=== PATIENT | male | born 1980 | race Caucasian/White ===

== ENCOUNTER 2019-02-28 15:11 | Inpatient (IN) | payer MEDICAID ==
--- NOTE | 2019-02-28 15:40 | ED ---
Psychiatric Complaint - HPI Summary HPI Summary: Patient is a 38-year-old male who presents emergency Department requesting a mental health evaluation. Patient notes a history of anxiety and depression. Patient states her last few weeks he had a lot of stress in his life and feels he is unsafe at home. Patient significant other is present and states she does not feel safe leaving patient at home. Symptoms are moderate in severity. Patient currently denies homicidal or suicidal ideations. Patient notes he has been admitted in the past in [place] numerous times in the past. He follows with an outpatient psychiatrist. No current modifying factors. - History Of Current Complaint Chief Complaint: EDSuicidal Time Seen by Provider: 02/28/19 15:26 Hx Obtained From: Patient - Allergies/Home Medications Allergies/Adverse Reactions: Allergies Allergy/AdvReac Type Severity Reaction Status Date / Time No Known Allergies Allergy Verified 02/28/19 15:22 Home Medications: Home Medications ALPRAZolam [Alprazolam] 1 mg PO BID PRN 02/28/19 [History Confirmed 02/28/19] Baclofen 10 mg PO BID PRN 02/28/19 [History Confirmed 02/28/19] Dextroamp-Amphetamin 30 mg Tab 30 mg PO DAILY 02/28/19 [History Confirmed ] busPIRone TAB* [Buspar TAB *] 15 mg PO BID 02/28/19 [History Confirmed 02/28/19] traZODone TAB* [Desyrel TAB*] 200 mg PO BEDTIME 02/28/19 [History Confirmed ] PMH/Surg Hx/FS Hx/Imm Hx Previously Healthy: Yes Infectious Disease History: No Infectious Disease History: Denies: Traveled Outside the [place] in Last 30 Days - Family History Known Family History: Positive: Non-Contributory - Social History Occupation: Employed Full-time Lives: With Family Alcohol Use: Daily Alcohol Amount: "almost every day", had ETOH this AM with coffee Substance Use Type: Reports: Marijuana, Prescribed Substance Use Comment - Amount & Last Used: daily marijuana use Smoking Status (MU): Current Every Day Smoker Review of Systems Cardiovascular: Negative Respiratory: Negative Gastrointestinal: Negative Skin: Negative Positive: Anxious, Depressed All Other Systems Reviewed And Are Negative: Yes Physical Exam Triage Information Reviewed: Yes Vital Signs On Initial Exam: Initial Vitals Temp Pulse Resp BP Pulse Ox 98.3 F 138 18 145/122 97 02/28/19 15:16 02/28/19 15:16 02/28/19 15:16 02/28/19 15:16 02/28/19 15:16 Vital Signs Reviewed: Yes Appearance: Positive: Well-Appearing - Pt. sitting on bed in NAD. SO present. Cooperative. Skin: Positive: Warm, Dry Head/Face: Positive: Normal Head/Face Inspection Eyes: Positive: Normal, EOMI Neck: Positive: Supple Musculoskeletal: Positive: Normal, Strength/ROM Intact Neurological: Positive: Normal, CN Intact II-III Psychiatric: Positive: Affect/Mood Appropriate Diagnostics - Vital Signs Vital Signs Temp Pulse Resp BP Pulse Ox 02/28/19 15:16 98.3 F 138 18 145/122 97 - Laboratory Result Diagrams: 02/28/19 16:07 02/28/19 16:07 Lab Statement: Any lab studies that have been ordered have been reviewed, and results considered in the medical decision making process. Course/Dx - Course Course Of Treatment: Pt. presenting with increaese stress and suicidal thought intermittently. Pt. states he feels he needs to be admitted to the [facility] and does not feel safe at home. Pt. medically cleared. Pending MHE. Pt. will be signed out to LANDEN Carpenter. - Differential Dx/Clinical Impression Differential Diagnosis/HQI/PQRI: Positive: Anxiety, Bipolar Disorder, Depression , Suicidal Ideation Provider Diagnosis: Depression, Stress reaction Discharge - Sign-Out/Discharge Documenting (check all that apply): Sign-Out Patient Signing out patient TO: Francisco Javier Fisher Patient Received Moderate/Deep Sedation with Procedure: No - Discharge Plan Condition: Stable Referrals: Non Staff,Doctor [Medical Doctor] - - Billing Disposition and Condition Condition: STABLE
[2019-02-28 16:14] LABS: ABS Lymphocytes 2.2 10^3/ul (1.0-4.8); ABS Monocytes 0.6 10^3/ul (0-0.8); ABS Neutrophils 4.3 10^3/ul (1.5-7.7); Eosinophil % 0.6 %; Hematocrit 51 % (42-52); Hemoglobin 17.9 g/dL (14.0-18.0); Lymphocyte % 31.1 %; Mean Corpuscular HGB Conc 35 g/dL (31-36); Mean Corpuscular Hemoglobin 32 pg (27-31); Mean Corpuscular Volume 90 fL (80-94); Mean Platelet Volume 7.3 fL (7.4-10.4); Nucleated Red Blood Cells % 0.1; Platelet Count 199 10^3/uL (150-450); Red Blood Count 5.68 10^6 /uL (4.18-5.48); Red Cell Distribution Width 14 % (10-15); White Blood Count 7.1 10^3/uL (3.5-10.8)
[2019-02-28 16:28] LABS: ALT 42 U/L (7-52); AST 29 U/L (13-39); Albumin 4.8 g/dL (3.2-5.2); Albumin/Globulin Ratio 1.7 (1-3); Alkaline Phosphatase 77 U/L (34-104); Anion Gap 9 mmol/L (2-11); BUN/Creatinine Ratio 17.4 (8-20); Blood Urea Nitrogen 21 mg/dL (6-24); CO2 Carbon Dioxide 24 mmol/L (22-32); Calcium 10.1 mg/dL (8.6-10.3); Chloride 104 mmol/L (101-111); EGFR African American 80.4 (>60); EGFR Non-African American 66.4 (>60); Globulin 2.9 g/dL (2-4); Glucose 108 mg/dL (70-100); Potassium 4.1 mmol/L (3.5-5.0); Sodium 137 mmol/L (135-145); Total Protein 7.7 g/dL (6.4-8.9)
[2019-02-28 16:41] LABS: Acetaminophen < 15 mcg/mL; Alcohol < 10 mg/dL (<10); Salicylate < 2.50 mg/dL (<30)
[2019-02-28 16:55] LABS: TSH (Thyroid Stimulating Horm) 1.18 mcIU/mL (0.34-5.60)
[2019-02-28 17:15] LABS: Urine Appearance Clear; Urine Bacteria 1+ (Absent); Urine Bilirubin Negative (Negative); Urine Blood Negative (Negative); Urine Color Amber; Urine Glucose Negative (Negative); Urine Ketones Negative (Negative); Urine Nitrite Negative (Negative); Urine Protein 1+(30 mg/dL) (Negative); Urine Red Blood Cell Trace(0-2/hpf) (Absent); Urine Specific Gravity 1.028 (1.010-1.030); Urine Squamous Epithelial Cell Present (Absent); Urine Urobilinogen Negative (Negative); Urine White Blood Cell Trace(0-5/hpf) (Absent)
[2019-02-28 17:16] LABS: Urine Benzodiazepine Screen Presumptive Positive (None Detect); Urine Opiates Screen None Detected (None Detect)
--- NOTE | 2019-02-28 19:07 | PN ---
Progress Note - Progress Note Date of Service: 02/28/19 Note: Patient signed out to me by a Javed LORENZO pending mental health evaluation. Patient will be a voluntary admission to [facility] psychiatric unit per Dr. Bailey. Patient admitted in stable condition with diagnosis of complex PTSD.
[2019-02-28] MEDS ORDERED: Al Hydrox/Mg Hydrox/Simet LIQ* 30 ML UDC PO PRN (21:29)
[2019-02-28] MEDS: Baclofen TAB* 10 MG PO PRN (22:31)
[2019-02-28] MEDS: traZODone TAB* 100 MG PO SCH (22:31)
[2019-03-01] MEDS: Vitamin THERAPEUTIC TAB PO SCH (08:06)
[2019-03-01] MEDS: Amphetamine MIXED SALT TAB* 10 MG TAB PO SCH (08:06)
[2019-03-01] MEDS: busPIRone TAB* 15 MG PO SCH ×2 (08:06→20:36)
[2019-03-01] MEDS: Acetaminophen TAB* 325 MG PO PRN ×3 (09:50→19:11)
[2019-03-01] MEDS: Baclofen TAB* 10 MG PO PRN ×2 (09:51→19:11)
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
[2019-03-01] MEDS: ALPRAZolam TAB* 0.5 MG PO PRN ×2 (14:30→20:36)
[2019-03-01] MEDS: traZODone TAB* 100 MG PO SCH (20:36)
[2019-03-02] MEDS: Amphetamine MIXED SALT TAB* 10 MG TAB PO SCH (09:40)
[2019-03-02] MEDS: Vitamin THERAPEUTIC TAB PO SCH (09:40)
[2019-03-02] MEDS: busPIRone TAB* 15 MG PO SCH ×3 (09:40→22:33)
--- NOTE | 2019-03-02 10:33 | PN ---
Subjective - Subjective Date of Service: 03/02/19 Service Type: [id number] Hosp care 35 min high complexity Subjective: Nursing Report: Patient was visible on unit, refusing medications. He is not attending group activities. CC: "I want my cannabis" Patient was seen and evaluated today. He is requesting to use cannabis while in the hospital. He is refusing to take his medications and stated that he doesnt want to be on effexor again because of the bad experience he had while being tapered down from it. The patient reported that he likes to cut himself and thinks about doing it often. Objective - General Observations Appearance: Disheveled Appears Stated Age: Yes Stature: WNL Posture: Slumped Eye Contact: Average Behavior/Activity: Slowed - Interaction Observations Attitude Towards Examiner: Cooperative Stated Mood: Dysphoric Affect: Blunted Speech Pattern/Tone: Perseverating Thought Process: Loose Associations Perception: WNL Thought Content: WNL Thought Process: Lethality: Passive Wish Hallucination Type: None Delusion Type: None - Cognitive Function Orientation: A&O x 4 Level of Consciousness: Awake Judgment Within Normal Limits: No Ability to Make Reasonable Decisions: Moderately Impaired - Medication Compliance Cooperative with Inpatient Medication Regimen: No - Group Participation Participates in Group Activities: No Plan - Plan Treatment Plan: Name: NEVILLE WINTER Birthdate: 1980 [id number] #Q15 minute observation. # The patient requires inpatient admission at this time to assure safety, receive treatment and work toward stabilization. # Labs ordered: Repeat Cr # Obtain collateral information once release is signed. # Collaboration with [facility] # PT consult for sciatica and gait strengthening Goals before discharge: Reduce/ eradicate self injurious behavior. Sodium 137 mmol/L (135-145) 02/28/19 16:07 Potassium 4.1 mmol/L (3.5-5.0) 02/28/19 16:07 BUN 21 mg/dL (6-24) 02/28/19 16:07 Creatinine 1.21 mg/dL (0.67-1.17) H 02/28/19 16:07 Calcium 10.1 mg/dL (8.6-10.3) 02/28/19 16:07 AST 29 U/L (13-39) 02/28/19 16:07 ALT 42 U/L (7-52) 02/28/19 16:07 Vital Signs Temp Pulse Resp BP Pulse Ox 99.1 F 99 16 132/78 97 03/01/19 08:49 02/28/19 21:14 03/02/19 13:12 03/01/19 08:49 03/01/19 08:49 Continued Medication Management: Continue Outpt Medication Medications: Current Medications Acetaminophen (Tylenol Tab*) 650 mg PO Q4H PRN PRN Reason: PAIN or TEMP > 101 F Last Admin: 03/01/19 19:11 Dose: 650 mg Al Hydrox/Mg Hydrox/Simethicone (Maalox Plus*) 30 ml PO Q4H PRN PRN Reason: INDIGESTION Alprazolam (Xanax Tab*) 1 mg PO BID PRN PRN Reason: ANXIETY Last Admin: 03/01/19 20:36 Dose: 1 mg Amphetamine/Dextroamphetamine (Adderall Tab*) 30 mg PO DAILY [facility] Last Admin: 03/02/19 09:40 Dose: Not Given Baclofen (Lioresal Tab*) 10 mg PO BID PRN PRN Reason: SPASMS Last Admin: 03/01/19 19:11 Dose: 10 mg Buspirone HCl (Buspar Tab *) 15 mg PO BID [facility] Last Admin: 03/02/19 09:40 Dose: Not Given Multivitamins (Theragran Tab*) 1 tab PO DAILY [facility] Last Admin: 03/02/19 09:40 Dose: Not Given Trazodone HCl (Desyrel Tab*) 200 mg PO BEDTIME [facility] Last Admin: 03/01/19 20:36 Dose: 200 mg - Discharge Plan Discharge Plan: Inpatient Hospitalization
[2019-03-02] MEDS: traZODone TAB* 100 MG PO SCH ×2 (21:12→22:26)
[2019-03-02] MEDS: Acetaminophen TAB* 325 MG PO PRN (22:26)
[2019-03-02] MEDS: ALPRAZolam TAB* 0.5 MG PO PRN (22:26)
[2019-03-02] MEDS: Baclofen TAB* 10 MG PO PRN (22:27)
[2019-03-03 08:33] LABS: EGFR African American 94.7 (>60); EGFR Non-African American 78.2 (>60); HDL Cholesterol 35.1 mg/dL
[2019-03-03] MEDS: Amphetamine MIXED SALT TAB* 10 MG TAB PO SCH (10:24)
[2019-03-03] MEDS: Vitamin THERAPEUTIC TAB PO SCH (10:24)
[2019-03-03] MEDS: busPIRone TAB* 15 MG PO SCH ×2 (10:24→22:18)
[2019-03-03] MEDS: Acetaminophen TAB* 325 MG PO PRN (10:26)
[2019-03-03] MEDS: Baclofen TAB* 10 MG PO PRN ×2 (10:26→22:22)
--- NOTE | 2019-03-03 11:40 | PN ---
Subjective - Subjective Date of Service: 03/03/19 Service Type: [id number] Hosp care 35 min high complexity Subjective: Nursing Report: Patient was visible on unit, no chemical restraints or PRNs. No overnight incidents. He is attending some group activities. CC: "Fine Patient was seen and evaluated today The patient reported he is ready for discharge and looks forward to seeing his girlfriend. 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 He reported taking some of his medications last night. His girlfriend visited and expressed that he is at his baseline. Objective - General Observations Appears Stated Age: Yes Stature: WNL Posture: WNL Eye Contact: Average Behavior/Activity: WNL - Interaction Observations Attitude Towards Examiner: Cooperative Stated Mood: Dysphoric Affect: Blunted Speech Pattern/Tone: Clear Thought Process: Coherent Perception: WNL Thought Content: WNL Hallucination Type: None Delusion Type: None - Cognitive Function Orientation: A&O x 4 Level of Consciousness: Awake - Medication Compliance Cooperative with Inpatient Medication Regimen: Partial - Group Participation Participates in Group Activities: Partial Assessment - Assessment Merits Inpatient Hospitalization: For Immediate Safety Clinical Impression: 38 year old male presented to the emergency department with suicidal ideation with plan to cut his wrist. Plan - Plan Treatment Plan: Name: NEVILLE WINTER Birthdate: 1980 [id number] #Q30 minute observation. # The patient requires inpatient admission at this time to assure safety, receive treatment and work toward stabilization. # Collaboration with [facility] Marsha Cash # PT consult for sciatica and gait strengthening # Domestic partner confirmed no access to firearms or stockpiles of medications. #Family meeting at 11am # Tentative Discharge for tomorrow #Patient refusing to start new medication and wants to wait until genetic testing results are back Goals before discharge: Reduce/ eradicate self injurious behavior. Vital Signs Temp Pulse Resp BP Pulse Ox 98.2 F 85 16 129/89 99 03/03/19 08:00 03/03/19 08:00 03/03/19 12:27 03/03/19 08:00 03/03/19 08:00 02/28/19 02/28/19 02/28/19 16:07 16:07 16:45 WBC 7.1 RBC 5.68 H Hgb 17.9 Hct 51 MCV 90 MCH 32 H MCHC 35 RDW 14 Plt Count 199 MPV 7.3 L Neut % (Auto) 59.6 Lymph % (Auto) 31.1 [place] % (Auto) 8.2 Eos % (Auto) 0.6 Baso % (Auto) 0.5 Absolute Neuts (auto) 4.3 Absolute Lymphs (auto) 2.2 Absolute Monos (auto) 0.6 Absolute Eos (auto) 0.0 Absolute Basos (auto) 0.0 Absolute Nucleated RBC 0.0 Nucleated RBC % 0.1 Sodium 137 Potassium 4.1 Chloride 104 Carbon Dioxide 24 Anion Gap 9 BUN 21 Creatinine 1.21 H Est GFR ( Amer) 80.4 Est GFR (Non-Af Amer) 66.4 BUN/Creatinine Ratio 17.4 Glucose 108 H Hemoglobin A1c Calcium 10.1 Total Bilirubin 0.90 AST 29 ALT 42 Alkaline Phosphatase 77 Total Protein 7.7 Albumin 4.8 Globulin 2.9 Albumin/Globulin Ratio 1.7 Triglycerides Cholesterol LDL Cholesterol HDL Cholesterol TSH 1.18 Urine Color Alanis Urine Appearance Clear Urine pH 5.0 Ur Specific [place] 1.028 Urine Protein 1+(30 mg/dl) A Urine Ketones Negative Urine Blood Negative Urine Nitrate Negative Urine Bilirubin Negative Urine Urobilinogen Negative Ur Leukocyte Esterase Negative Urine WBC (Auto) Trace(0-5/hpf) Urine RBC (Auto) Trace(0-2/hpf) Ur Squamous Epith Cells Present A Urine Bacteria 1+ A Urine Glucose Negative Salicylates < 2.50 Urine Opiates Screen Acetaminophen < 15 Ur Barbiturates Screen Ur Phencyclidine Scrn Ur Amphetamines Screen U Benzodiazepines Scrn Urine Cocaine Screen U Cannabinoids Screen Serum Alcohol < 10 02/28/19 03/03/19 03/03/19 16:45 08:01 08:01 WBC RBC Hgb Hct MCV MCH MCHC RDW Plt Count MPV Neut % (Auto) Lymph % (Auto) [place] % (Auto) Eos % (Auto) Baso % (Auto) Absolute Neuts (auto) Absolute Lymphs (auto) Absolute Monos (auto) Absolute Eos (auto) Absolute Basos (auto) Absolute Nucleated RBC Nucleated RBC % Sodium Potassium Chloride Carbon Dioxide Anion Gap BUN Creatinine 1.05 Est GFR ( Amer) 94.7 Est GFR (Non-Af Amer) 78.2 BUN/Creatinine Ratio Glucose Hemoglobin A1c 5.4 Calcium Total Bilirubin AST ALT Alkaline Phosphatase Total Protein Albumin Globulin Albumin/Globulin Ratio Triglycerides 172 Cholesterol 171 LDL Cholesterol 102 HDL Cholesterol 35.1 TSH Urine Color Urine Appearance Urine pH Ur Specific [place] Urine Protein Urine Ketones Urine Blood Urine Nitrate Urine Bilirubin Urine Urobilinogen Ur Leukocyte Esterase Urine WBC (Auto) Urine RBC (Auto) Ur Squamous Epith Cells Urine Bacteria Urine Glucose Salicylates Urine Opiates Screen None detected Acetaminophen Ur Barbiturates Screen None detected Ur Phencyclidine Scrn None detected Ur Amphetamines Screen Presumptive positive A U Benzodiazepines Scrn Presumptive positive A Urine Cocaine Screen None detected U Cannabinoids Screen Presumptive positive A Serum Alcohol Continued Medication Management: Continue Outpt Medication Medications: Current Medications Acetaminophen (Tylenol Tab*) 650 mg PO Q4H PRN PRN Reason: PAIN or TEMP > 101 F Last Admin: 03/03/19 10:26 Dose: 650 mg Al Hydrox/Mg Hydrox/Simethicone (Maalox Plus*) 30 ml PO Q4H PRN PRN Reason: INDIGESTION Alprazolam (Xanax Tab*) 1 mg PO BID PRN PRN Reason: ANXIETY Last Admin: 03/02/19 22:26 Dose: 1 mg Amphetamine/Dextroamphetamine (Adderall Tab*) 30 mg PO DAILY [facility] Last Admin: 03/03/19 10:24 Dose: 30 mg Baclofen (Lioresal Tab*) 10 mg PO BID PRN PRN Reason: SPASMS Last Admin: 03/03/19 10:26 Dose: 10 mg Buspirone HCl (Buspar Tab *) 15 mg PO BID [facility] Last Admin: 03/03/19 10:24 Dose: 15 mg Multivitamins (Theragran Tab*) 1 tab PO DAILY [facility] Last Admin: 03/03/19 10:24 Dose: 1 tab Trazodone HCl (Desyrel Tab*) 200 mg PO BEDTIME [facility] Last Admin: 03/02/19 22:26 Dose: 200 mg - Discharge Plan Discharge Plan: Inpatient Hospitalization
[2019-03-03] MEDS: ALPRAZolam TAB* 0.5 MG PO PRN ×2 (15:14→22:22)
[2019-03-03] MEDS: Ibuprofen TAB* 600 MG PO PRN (15:43)
--- NOTE | 2019-03-03 19:33 | DS ---
Subjective - Subjective Discharge Date: 03/04/19 Treatment Course & Assessment Clinical Course & Impression: 38 year old male presented to the emergency department with suicidal ideation with plan to cut his wrist. Discharge Planning - Discharge Planning Medications: Current Medications Al Hydrox/Mg Hydrox/Simethicone (Maalox Plus*) 30 ml PO Q4H PRN PRN Reason: INDIGESTION Alprazolam (Xanax Tab*) 1 mg PO BID PRN PRN Reason: ANXIETY Last Admin: 03/03/19 15:14 Dose: 1 mg Amphetamine/Dextroamphetamine (Adderall Tab*) 30 mg PO DAILY [facility] Last Admin: 03/03/19 10:24 Dose: 30 mg Baclofen (Lioresal Tab*) 10 mg PO BID PRN PRN Reason: SPASMS Last Admin: 03/03/19 10:26 Dose: 10 mg Buspirone HCl (Buspar Tab *) 15 mg PO BID [facility] Last Admin: 03/03/19 10:24 Dose: 15 mg Ibuprofen (Motrin Tab*) 600 mg PO Q6H PRN PRN Reason: PAIN Last Admin: 03/03/19 15:43 Dose: 600 mg Multivitamins (Theragran Tab*) 1 tab PO DAILY [facility] Last Admin: 03/03/19 10:24 Dose: 1 tab Trazodone HCl (Desyrel Tab*) 200 mg PO BEDTIME [facility] Last Admin: 03/02/19 22:26 Dose: 200 mg Discharge Planning: Prescriptions provided for discharge [] Yes [] No Follow up care details as per social work arrangements. Patient response to discharge plan: [] eager for discharge [] agreeable with discharge plan [] ambivalent about discharge [] disagrees with discharge today
[2019-03-03] MEDS: traZODone TAB* 100 MG PO SCH (22:18)
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
[2019-03-04] MEDS: Amphetamine MIXED SALT TAB* 10 MG TAB PO SCH (08:52)
[2019-03-04] MEDS: Vitamin THERAPEUTIC TAB PO SCH (08:53)
[2019-03-04] MEDS: busPIRone TAB* 15 MG PO SCH (08:53)
[2019-03-04] MEDS: ALPRAZolam TAB* 0.5 MG PO PRN (08:58)
[2019-03-04] MEDS: Ibuprofen TAB* 600 MG PO PRN (08:58)
[2019-03-04] MEDS: Baclofen TAB* 10 MG PO PRN (08:59)
[2019-03-04 10:13] VITALS: BP 142/84
--- NOTE | 2019-03-04 11:47 | PN ---
BSU: Group Therapy Note - Service Type Service Type: [id number] Group Psychotherapy - Cognitive Behavioral Group Therapy ( CBT):Patient was attentive and participatory in CBT programming this morning, and remained in good behavioral control. Patient expressed positive insights regarding relevant treatment interventions and goals.
== END 2019-03-04 11:45 | disposition home or self-care (01) | DRG 753 ==
LOC: ED 15:11 → BSU 20:47
PROVIDERS: ADMIT Psychiatry & Neurology Psychiatry; ATTEND Psychiatry & Neurology Psychiatry
PROC: GZHZZZZ Group Psychotherapy (ICD-10-PCS; principal; 2019-03-04)
DX: F31.30 Bipolar disorder, current episode depressed, mild or moderate severity, unspecified (principal); R45.851 Suicidal ideations; F43.10 Post-traumatic stress disorder, unspecified; F90.9 Attention-deficit hyperactivity disorder, unspecified type; F12.90 Cannabis use, unspecified, uncomplicated; F17.210 Nicotine dependence, cigarettes, uncomplicated; I10 Essential (primary) hypertension; M54.30 Sciatica, unspecified side; M25.50 Pain in unspecified joint; Z72.89 Other problems related to lifestyle; Z91.5 Personal history of self-harm
CPT/HCPCS: 36415; 80053; 80061; 80307; 80320; 80329; 81003; 81015; 82565; 83036; 84443; 85025; 87086; 90853; 99222; 99233; 99238; 99285; A9270-GY; G0480

== ENCOUNTER 2019-04-02 16:08 | Emergency (ER) | payer MEDICAID ==
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
[2019-04-02 17:32] LABS: ABS Lymphocytes 1.6 10^3/ul (1.0-4.8); ABS Monocytes 0.5 10^3/ul (0-0.8); Eosinophil % 0.4 %; Hematocrit 46 % (42-52); Hemoglobin 15.8 g/dL (14.0-18.0); Mean Corpuscular HGB Conc 35 g/dL (31-36); Mean Corpuscular Hemoglobin 31 pg (27-31); Mean Corpuscular Volume 91 fL (80-94); Mean Platelet Volume 7.5 fL (7.4-10.4); Nucleated Red Blood Cells % 0.1; Platelet Count 201 10^3/uL (150-450); Red Blood Count 5.03 10^6 /uL (4.18-5.48); Red Cell Distribution Width 14 % (10-15); White Blood Count 8.2 10^3/uL (3.5-10.8)
[2019-04-02 17:51] LABS: ALT 25 U/L (7-52); AST 22 U/L (13-39); Albumin 4.8 g/dL (3.2-5.2); Albumin/Globulin Ratio 1.8 (1-3); Alkaline Phosphatase 71 U/L (34-104); Anion Gap 7 mmol/L (2-11); BUN/Creatinine Ratio 21.6 (8-20); Blood Urea Nitrogen 27 mg/dL (6-24); CO2 Carbon Dioxide 25 mmol/L (22-32); Calcium 9.7 mg/dL (8.6-10.3); Chloride 105 mmol/L (101-111); EGFR African American 77.4 (>60); Globulin 2.7 g/dL (2-4); Glucose 96 mg/dL (70-100); Potassium 4.5 mmol/L (3.5-5.0); Sodium 137 mmol/L (135-145); Total Protein 7.5 g/dL (6.4-8.9)
[2019-04-02 17:52] LABS: Acetaminophen < 15 mcg/mL; Alcohol < 10 mg/dL (<10); Salicylate < 2.50 mg/dL (<30)
[2019-04-02 17:57] LABS: Urine Appearance Cloudy; Urine Bacteria Absent (Absent); Urine Bilirubin Negative (Negative); Urine Blood Negative (Negative); Urine Color Amber; Urine Glucose Negative (Negative); Urine Ketones Negative (Negative); Urine Nitrite Negative (Negative); Urine Protein 1+(30 mg/dL) (Negative); Urine Red Blood Cell 1+(3-5/hpf) (Absent); Urine Specific Gravity 1.031 (1.010-1.030); Urine Urobilinogen Negative (Negative); Urine White Blood Cell Trace(0-5/hpf) (Absent)
[2019-04-02 18:06] LABS: TSH (Thyroid Stimulating Horm) 0.83 mcIU/mL (0.34-5.60)
[2019-04-02 18:12] LABS: Urine Benzodiazepine Screen Presumptive Positive (None Detect); Urine Opiates Screen None Detected (None Detect)
--- NOTE | 2019-04-02 22:25 | ED ---
Progress - Progress Note Progress Note: This patient was signed out from Dr. oNland to Dr. Amin at shift change at 2200 on 04/02/19, pending disposition, awaiting MHE. MHE reveals that pt should be transferred to higher level of care. However pt later decided that he was stable enough to be discharged home. Re-Evaluation - Re-Evaluation First Eval Re-Evaluation Time: 17:00 Comment: Patient is medically clear. Course/Dx - Course Course Of Treatment: The patient is a 38 y/o M presenting to [facility] with a chief complaint of gradual worsening of feelings of self-mutilation. This pt was medically cleared by Dr. Noland. This patient was signed out from Dr. Noland to Dr. Amin at shift change at 2200 on 04/02/19, pending disposition, awaiting MHE. MHE reveals that pt should be transferred to higher level of care. However pt later decided that he was stable enough to be discharged home. - Diagnoses Provider Diagnoses: Anxiety Discharge - Sign-Out/Discharge Documenting (check all that apply): Patient Departure - Discharge Patient Received Moderate/Deep Sedation with Procedure: No - Discharge Plan Condition: Fair Disposition: HOME Patient Education Materials: Mood Disorders (ED), Depression (ED), Nonsuicidal Self-Injury (ED), Suicide Prevention (ED) Referrals: [facility], [place] [Other] (Please follow up with your regular therapist, Roberto Hair, at [facility].) No Primary Care Phys,NOPCP [Primary Care Provider] - - Billing Disposition and Condition Condition: FAIR Disposition: Home - Attestation Statements Document Initiated by Jensen: Yes Documenting Scribe: Sana Morgan Provider For Whom Jensen is Documenting (Include Credential): Dr. Francisco Javier Amin MD Scribe Attestation: Sana Holman scribed for Dr. Francisco Javier Amin MD on 04/03/19 at 0601. Scribe Documentation Reviewed: Yes Provider Attestation: The documentation as recorded by the Sana bailey accurately reflects the service I personally performed and the decisions made by me, Dr. Francisco Javier Amin MD Status of Scribe Document: Viewed
[2019-04-03] MEDS ORDERED: Baclofen TAB* 20 MG PO ONE (02:57)
[2019-04-03] MEDS ORDERED: Acetaminophen TAB* 325 MG PO ONE (02:58)
[2019-04-03 05:40] VITALS: BP 124/73
== END 2019-04-03 05:45 | disposition home or self-care (01) ==
LOC: ED 16:08
DX: F41.9 Anxiety disorder, unspecified (principal); I10 Essential (primary) hypertension; F90.9 Attention-deficit hyperactivity disorder, unspecified type; Z79.899 Other long term (current) drug therapy; F32.9 Major depressive disorder, single episode, unspecified; F41.0 Panic disorder [episodic paroxysmal anxiety]; F17.210 Nicotine dependence, cigarettes, uncomplicated
CPT/HCPCS: 36415; 80053; 80307; 80320; 80329; 81003; 81015; 84443; 85025; 87086; 99284; A9270-GY; G0480